=== PATIENT | male | born 1990 | race Caucasian/White ===

== ENCOUNTER 2018-03-16 04:26 | Emergency (ER) | END 2018-03-16 06:12 | disposition left against medical advice (07) ==

== ENCOUNTER 2018-05-23 19:10 | Emergency (ER) | END 2018-05-24 00:11 | disposition home or self-care (01) ==

== ENCOUNTER 2018-06-28 01:23 | Emergency (ER) | END 2018-06-28 03:15 | disposition home or self-care (01) ==